=== PATIENT | female | born 1960 | race Caucasian/White ===

== ENCOUNTER 2020-10-26 09:45 | Observation (INO) ==
[~2020-10-26 09:45] MED LIST: Buffered Lidocaine 1% SYRIN 1 ml INTRADERM ONE; Famotidine IV 10 MG/ML 2 ml VIAL (20 mg) IV ONE; Lactated Ringers 1000 ml BAG 1,000 ML IV SCH
[2020-10-26] MEDS ORDERED: Clindamycin 900 MG/D5W BAG 900 MG/50 ML BAG IVPB ONE (10:12)
[2020-10-26] MEDS ORDERED: Famotidine IV 10 MG/ML 2 ml VIAL (20 mg) ONE (10:12)
[2020-10-26] MEDS ORDERED: Lidocaine 2% PF 5 ML VIAL ONE ×2 (10:33→11:30)
[2020-10-26] MEDS ORDERED: Ondansetron 4 mg VIAL 2 MG/ML 2 ml VIAL ONE (10:34)
[2020-10-26] MEDS ORDERED: Dexamethasone IV 4 MG/ML VIAL 1 ml VIAL ONE (10:34)
[2020-10-26] MEDS ORDERED: fentaNYL 100 mcg/2 ml 50 MCG/ML VIAL ONE (11:29)
[2020-10-26] MEDS ORDERED: Midazolam 5 mg/5 ml VIAL 1 mg/ml 5 ml VIAL (5 mg) ONE (11:29)
[2020-10-26] MEDS ORDERED: ROPIVACAINE 5 MG/ML 30 ML BTL (0.5%) ONE ×2 (11:30→13:25)
[2020-10-26] MEDS ORDERED: Propofol 10 MG/ML 20 ML BTL ONE (15:15)
[2020-10-26] MEDS ORDERED: Ondansetron 4 mg VIAL 2 MG/ML 2 ml VIAL IV PRN (15:24)
[2020-10-26] MEDS ORDERED: Lactulose 30 ml UDC PO PRN (15:24)
[2020-10-26] MEDS ORDERED: diPHENhydraMINE 25 mg TAB PO PRN (15:24)
[2020-10-26] MEDS ORDERED: Ondansetron ODT 4 mg TAB 4 MG TAB PO PRN (15:24)
[2020-10-26] MEDS ORDERED: diPHENhydraMINE IV 50 MG/ML 1 ml VIAL (BENADRYL) IV PRN (15:24)
[2020-10-26] MEDS ORDERED: Magnesium Hydroxide LIQ 30 ML UDC PO PRN (15:24)
[2020-10-26] MEDS: Lactated Ringers 1000 ml BAG 1,000 ML IV SCH (18:10)
[2020-10-26] MEDS: Magnesium Hydroxide LIQ 30 ML UDC PO SCH (21:05)
[2020-10-26] MEDS: Clindamycin 600 MG/D5W BAG 600 MG/50 ML BAG IV SCH (21:06)
[2020-10-27] MEDS: Clindamycin 600 MG/D5W BAG 600 MG/50 ML BAG IV SCH (04:32)
[2020-10-27] MEDS: Lactated Ringers 1000 ml BAG 1,000 ML IV SCH (04:32)
[2020-10-27 07:13] LABS: Hematocrit 35 % (35-47); Hemoglobin 11.7 g/dL (12.0-16.0); Mean Platelet Volume 7.5 fL (7.4-10.4); Platelet Count 235 10^3/uL (150-450)
[2020-10-27 08:21] LABS: Calcium 8.2 mg/dL (8.6-10.3)
[2020-10-27 08:27] LABS: EGFR African American 96.2 (>60); EGFR Non-African American 79.5 (>60)
[2020-10-27] MEDS ORDERED: Vitamin THERAPEUTIC TAB PO SCH (09:00)
[2020-10-27] MEDS: Magnesium Hydroxide LIQ 30 ML UDC PO SCH (09:43)
[2020-10-27 11:40] VITALS: BP 128/75
[2020-10-29] MEDS ORDERED: Scopolamine PATCH Remove NOTE PATCH OFF ONE (06:00)
== END 2020-10-27 14:30 | disposition home or self-care (01) ==
LOC: SSU 09:45 → OR 09:45 → EDSTATUS 13:00
PROVIDERS: ADMIT Orthopaedic Surgery Adult Reconstructive Orthopaedic Surgery; ATTEND Orthopaedic Surgery Adult Reconstructive Orthopaedic Surgery